=== PATIENT | male | born 2000 | race Caucasian/White ===

== ENCOUNTER 2024-08-07 18:57 | Emergency (ER) | payer OTHER, SELFPAY ==
[2024-08-07 19:04] VITALS: BP 158/110
--- NOTE | 2024-08-07 19:09 | ED.SKININJ ---
HPI-Injury
<Aura Schwarz NP - Last Filed: 08/07/24 19:12>
General
Chief Complaint: Bite
Time Seen by Provider: 08/07/24 21:37
<Tanya Whitt PA-C - Last Filed: 08/08/24 11:15>
General
Source: patient
History of Present Illness-Injury
Initial Injury comments:
24yoM with a history of asthma presenting with his mother for evaluation of a facial laceration. Patient was walking his dog when the dog got in a fight with another dog. The patient picked up his dog who then bit him in the face underneath the R
eye. Police were called to the scene and all animals are vaccinated for rabies. He denies any injuries from the other dog. No changes in vision. Unknown last Tdap.
ED Provider Triage
<Aura Schwarz SAMPLE [employer]ER - Last Filed: 08/07/24 19:12>
-
Patient seen by provider in Triage?: Seen in Triage
Attestation: A medical screening examination has been initiated by a qualified medical provider. Based on the assessment performed at this time, it has been determined that an emergent medical condition may exist and the patient has been informed
that further medical evaluation and possible additional diagnostic testing may be needed.
HPI: 24-year-old states he was walking his dogs, 2 other neighborhood dogs jumped the fence at the [place] and attacked their dogs. He was try to get the dogs apart and his own dog bit him in the face. Has laceration under right eye, has a
superficial scrape on the left forearm the dog is up-to-date with his immunizations. Unsure of last tetanus immunization
GENERAL: Alert , in no apparent distress
EYE: No eyeball involvement, there is a laceration under the right eye . Denies any visual changes
ENT: No visible abnormalities.
LUNGS: No acute respiratory distress
NEUROLOGICAL: Alert and oriented
SKIN: Skin intact. No visible changes.
MUSCULOSKELETAL: Moving extremities normally
PSYCH: Normal and appropriate interaction.
This is a medical evaluation conducted in person to initiate diagnostic evaluation and provide initial therapeutics. Please see further documentation by the treating clinician.
Phy Exam
<Tanya Whitt PA-C - Last Filed: 08/08/24 11:15>
General Physical Exam
General Presentation: well appearing and no apparent distress
General age: appears stated age
General Skin: warm and dry
General Habitus: normal
General Mental: alert
Eye Exam
Eye Exam: PERRL, EOMI, conjunctiva normal and globe normal
Pulmonary Exam
Pulmonary Exam: no respiratory distress
[place] Coma Scale
Eye Opening: Spontaneous
Verbal Response: Oriented
Motor Response: Obeys Commands
GCS Total Score: 15
Skin Exam
Skin Exam: warm/dry and laceration (Approx 2cm gaping laceration just inferior to the R eye. Does not involve involve eyelid margin. )
Psychiatric Exam
Psychiatric Exam: normal mood/affect
Course
<Aura Schwarz NP - Last Filed: 08/07/24 19:12>
Orders/Labs/Results
Orders:
Orders
08/07/24 19:12
Tetanus/Diphth/Acelpertussis [Adacel] 0.5 ml IM .ONCE ONE
08/07/24 22:32
Amoxicillin 875 mg/Clav 125 mg [Augmentin 875 mg/125 mg] 1 tablet PO NOW STA
Vital Signs
Initial and Last Documented VS:
Initial Vital Signs
Temp Pulse Resp BP Pulse Ox
97.8 F 120 22 158/110 96
08/07/24 19:04 08/07/24 19:04 08/07/24 19:04 08/07/24 19:04 08/07/24 19:04
Last Documented Vital Signs
Temp Pulse Resp BP Pulse Ox
97.8 F 93 18 142/85 98
08/07/24 19:04 08/07/24 23:14 08/07/24 23:14 08/07/24 23:14 08/07/24 20:00
<Tanya Whitt PA-C - Last Filed: 08/08/24 11:15>
Orders/Labs/Results
Orders:
Orders
08/07/24 19:12
Tetanus/Diphth/Acelpertussis [Adacel] 0.5 ml IM .ONCE ONE
08/07/24 22:32
Amoxicillin 875 mg/Clav 125 mg [Augmentin 875 mg/125 mg] 1 tablet PO NOW STA
Vital Signs
Initial and Last Documented VS:
Initial Vital Signs
Temp Pulse Resp BP Pulse Ox
97.8 F 120 22 158/110 96
08/07/24 19:04 08/07/24 19:04 08/07/24 19:04 08/07/24 19:04 08/07/24 19:04
Last Documented Vital Signs
Temp Pulse Resp BP Pulse Ox
97.8 F 93 18 142/85 98
08/07/24 19:04 08/07/24 23:14 08/07/24 23:14 08/07/24 23:14 08/07/24 20:00
Procedures
<Tanya Whitt PA-C - Last Filed: 08/08/24 11:15>
Laceration Closure
Right Face:
Status of Wound: clean
Size of Wound in cm: 2
Description of Wound Edges: sharp
Preparation: cleaned with saline
Anesthesia: 1% Lidocaine
Revision/Debridement: minor revision
Wound exploration: explored to base- no FB
Type of Closure: single layer closure
Skin Closure Material: 6-0 nylon
Number of sutures: 3
<Tanya Whitt PA-C - Last Filed: 08/08/24 11:15>
MDM/Problems Addressed
Differential Diagnosis Includes:
24yoM here with a facial laceration caused by a dog bite. Bit by his own dog. There is a 2cm gaping laceration present just inferior to the R eye on exam. Fortunately, there is no involvement of the eyelid margin and the R eye appears normal. PERRL.
EOMs intact. Patient denies any visual disturbance.
Wound was irrigated and repaired as above. Patient tolerated well without immediate complications. Tdap was updated during triage. He was started on Augmentin for infection prophylaxis. Home wound care discussed. He was advised to return to the ED
in 5 days for suture removal or sooner with any signs of infection. Patient discharged in stable condition.
<Tanya Whitt PA-C - Last Filed: 08/08/24 11:15>
*Critical Care Note
Total Time (30-74mins, 75-104mins- exclusive of procedures): Not Applicable
ED Attending Note
<Aura Schwarz NP - Last Filed: 08/07/24 19:12>
-
Portions of this chart may have been created with voice recognition software.� Occasional wrong word or��sound alike� substitutions may have occurred due to the inherent limitations of voice recognition software.
Discharge Plan
Departure
Patient Disposition: Home (Routine Discharge)
Date of Disposition: 08/07/24
Time of Disposition: 22:33
Patient with high blood pressure during this ER visit?: Yes
Discharge Problem:
Facial laceration
Instructions: Laceration Repair With Stitches (DC)
Prescriptions:
New
amoxicillin-pot clavulanate 875-125 mg tablet
1 tab PO BID Qty: 13 0RF
No Action
melatonin 3 MG tablet
3 mg PO HS
fluoxetine 20 MG capsule
20 mg PO DAILY
Referrals:
Reji Angulo MD [Family Provider] -
Activity Restrictions/Additional Instructions:
Take antibiotics as prescribed. Keep wound clean and dry.
Return to the ER in 5 days for suture removal or sooner with any signs of infection (redness, drainage, warmth).
Interventions
Interventions:
*Risk Screen - Suicide Last Done: 08/07/24 19:04
*General Assessment Last Done: 08/07/24 21:54
*Neglect/Abuse Screening Last Done: 08/07/24 19:04
*Nursing Disposition Last Done: 08/07/24 23:14
ED-Skin Assessment Last Done: 08/07/24 19:59
Discharge Date and Time
Discharge Date/Time: 08/07/24 23:15
Print Language: KAZAKH
[2024-08-07] MEDS: ADACEL 0.5 ML IM (19:52)
[2024-08-07 20:00] VITALS: BP 150/89
[2024-08-07] MEDS: AUGMENTIN 875 MG/125 MG 1 TABLET PO (23:07)
[2024-08-07 23:13] VITALS: BP 142/85
[2024-08-07 23:14] VITALS: BP 142/85
== END 2024-08-07 23:15 | disposition home or self-care (01) ==
LOC: EMR 18:57
PROVIDERS: EMERGENCY PHYSICIAN Emergency Medicine; FAMILY PHYSICIAN Family Medicine
DX: S01.85XA Open bite of other part of head, initial encounter (principal); S50.812A Abrasion of left forearm, initial encounter; W54.0XXA Bitten by dog, initial encounter; Y93.K1 Activity, walking an animal; Z23 Encounter for immunization; R03.0 Elevated blood-pressure reading, without diagnosis of hypertension; J45.909 Unspecified asthma, uncomplicated; Z91.018 Allergy to other foods
CPT/HCPCS: 99283; 12011; 90471; 90715

== ENCOUNTER 2024-08-13 07:19 | Emergency (ER) | payer OTHER, SELFPAY ==
[2024-08-13 07:20] VITALS: BP 175/85
--- NOTE | 2024-08-13 08:27 | ED.SKININJ ---
HPI-Injury
General
Chief Complaint: Wound Check/Suture Removal
Source: patient
Time Seen by Provider: 08/13/24 08:01
History of Present Illness-Injury
Initial Injury comments:
24-year-old male presents for suture removal of the right eyelid. He was here 6 days ago had sutures placed for dog bite/laceration. No complaints other than antibiotics affecting his GI tract.
Phy Exam
Physical Exam
Physical Exam:
General: Well-appearing male no acute distress
Skin: Well-appearing laceration right lower eyelid with 3 intact nylon sutures. Small scab formation as well.
Course
Vital Signs
Initial and Last Documented VS:
Initial Vital Signs
Temp Pulse Resp BP Pulse Ox
98.0 F 75 18 175/85 99
08/13/24 07:20 08/13/24 07:20 08/13/24 07:20 08/13/24 07:20 08/13/24 07:20
Last Documented Vital Signs
Temp Pulse Resp BP Pulse Ox
98.0 F 75 18 175/85 99
08/13/24 07:20 08/13/24 07:20 08/13/24 07:20 08/13/24 07:20 08/13/24 07:20
MDM/Problems Addressed
Differential Diagnosis Includes:
Patient here for suture removal. 3 sutures were removed without incident. Wound care instructions were given stable for discharge
*Critical Care Note
Total Time (30-74mins, 75-104mins- exclusive of procedures): Not Applicable
ED Attending Note
-
Portions of this chart may have been created with voice recognition software.� Occasional wrong word or��sound alike� substitutions may have occurred due to the inherent limitations of voice recognition software.
Discharge Plan
Departure
Patient Disposition: Home (Routine Discharge)
Date of Disposition: 08/13/24
Time of Disposition: 08:31
Patient with high blood pressure during this ER visit?: No
Discharge Problem:
Visit for suture removal
Instructions: Stitches Removal
Prescriptions:
No Action
melatonin 3 MG tablet
3 mg PO HS
fluoxetine 20 MG capsule
20 mg PO DAILY
amoxicillin-pot clavulanate 875-125 mg tablet
1 tab PO BID Qty: 13 0RF
Referrals:
Reji Angulo MD [Family Provider] -
Activity Restrictions/Additional Instructions:
Apply antibacterial ointment to the wound. You may wash with soapy water. Return if needed otherwise follow-up with your doctor.
Interventions
Interventions:
*Risk Screen - Suicide Last Done: 08/13/24 07:20
*General Assessment Last Done: 08/13/24 07:20
*Neglect/Abuse Screening Last Done: 08/13/24 07:20
Discharge Date and Time
Print Language: GERMAN
== END 2024-08-13 08:45 | disposition home or self-care (01) ==
LOC: EMR 07:19
PROVIDERS: EMERGENCY PHYSICIAN Emergency Medicine; FAMILY PHYSICIAN Family Medicine
DX: S01.111D Laceration without foreign body of right eyelid and periocular area, subsequent encounter (principal); W54.0XXD Bitten by dog, subsequent encounter
CPT/HCPCS: 99282